=== PATIENT | female | born 1995 | race Caucasian/White ===

== ENCOUNTER 2017-04-18 21:42 | Outpatient (CLI) | payer BC ==
[~2017-04-18] VITALS: Ht 167.6 cm; Wt 69.0 kg
[~2017-04-18 21:42] MED LIST: METO5TAB57 PO; PROM12.553 RC
[2017-04-18 21:50] VITALS: BP 112/69
[2017-04-18 23:11] LABS: AMNISURE NEGATIVE (NEGATIVE)
== END 2017-04-18 23:58 | disposition home or self-care (01) ==
LOC: LDOP 21:42
PROVIDERS: ATTEND Obstetrics & Gynecology
DX: O42.913 Preterm premature rupture of membranes, unspecified as to length of time between rupture and onset of labor, third trimester (principal); O62.9 Abnormality of forces of labor, unspecified; O99.343 Other mental disorders complicating pregnancy, third trimester; O47.03 False labor before 37 completed weeks of gestation, third trimester; F32.9 Major depressive disorder, single episode, unspecified; Z3A.33 33 weeks gestation of pregnancy
CPT/HCPCS: 59025; 76815; 84112; 89060; 99211; G0463; Q0114

== ENCOUNTER 2017-05-29 03:53 | Inpatient (IN) | payer BC ==
[~2017-05-29] VITALS: Ht 165.1 cm; Wt 71.8 kg
[2017-05-29 05:16] LABS: AMNISURE POSITIVE (NEGATIVE)
[2017-05-29] MEDS ORDERED: NEWBORN KIT ONE (05:21)
[2017-05-29] MEDS ORDERED: CALCIUM CARBONATE 500 MG TAB.CHEW ONE ×2 (05:21→13:11)
[2017-05-29] MEDS ORDERED: OXYTOCIN 30U/ 0.9% NaCL 500ML 500 ML ONE (05:21)
[2017-05-29] MEDS ORDERED: D5%-LACTATED RINGERS 1,000 ML IV SCH (05:24)
[2017-05-29] MEDS ORDERED: OXYTOCIN 30U/ 0.9% NaCL 500ML 500 ML IV ONE (05:24)
[2017-05-29] MEDS ORDERED: OXYTOCIN 30U/ 0.9% NaCL 500ML 500 ML IV PRN (05:24)
[2017-05-29] MEDS ORDERED: FENTANYL PF 100 MCG/2ML IV PRN (05:30)
[2017-05-29] MEDS ORDERED: FENTANYL PF 100 MCG/2ML IVPush PRN (05:30)
[2017-05-29] MEDS ORDERED: ONDANSETRON 2MG/ML, 2ML IVPush PRN (05:30)
[2017-05-29] MEDS ORDERED: TERBUTALINE 1 MG/ML, 1ML IVPush PRN (05:30)
[2017-05-29] MEDS: CALCIUM CARBONATE 500 MG TAB.CHEW PO PRN ×2 (05:45→13:16)
[2017-05-29 05:47] LABS: BASOPHILS # (AUTO) 0.04 x10^3/uL (0-0.1); BASOPHILS % (AUTO) 0 % (0-1); EOSINOPHILS # (AUTO) 0.04 x10^3/uL (0-0.4); EOSINOPHILS % (AUTO) 0 % (1-7); LYMPHOCYTES # (AUTO) 2.66 x10^3/uL (1-3.4); LYMPHOCYTES % (AUTO) 21 % (22-44); MD NO; MEAN CORPUSCULAR HGB CONC 34.1 g/dL (32.4-35.8); MEAN CORPUSCULAR VOLUME 96.7 fL (80-100); MEAN PLATELET VOLUME 7.8 fL (7.4-10.4); MONOCYTES # (AUTO) 0.73 x10^3/uL (0.2-0.8); MONOCYTES % (AUTO) 6 % (2-9); NEUTROPHILS # (AUTO) 9.21 x10^3/uL (1.8-6.8); NEUTROPHILS % (AUTO) 73 % (42-75); PLATELET COUNT 251 x10^3/uL (130-400); RED CELL DISTRIBUTION WIDTH 12.8 % (9.6-15.2)
[2017-05-29] MEDS ORDERED: ACET650S21 PO (06:37)
[2017-05-29] MEDS ORDERED: CALC200T3 PO (06:38)
[2017-05-29] MEDS ORDERED: FLUO20CA19 PO (06:39)
[2017-05-29] MEDS ORDERED: LACTATED RINGERS 1,000 ML IV SCH (07:06)
[2017-05-29] MEDS ORDERED: FENTANYL/BUPIV./NS/PF 250 ML EPIDCONT SCH (07:06)
[2017-05-29 07:15] VITALS: BP 105/62
[2017-05-29] MEDS ORDERED: NALOXONE 0.4 MG/ML, 1ML IVPush PRN (07:30)
[2017-05-29] MEDS ORDERED: EPHEDRINE 50 MG/ML, 1ML IVPush PRN (07:30)
[2017-05-29] MEDS ORDERED: LACTATED RINGERS 1,000 ML IVBOLUS PRN (07:30)
[2017-05-29] MEDS ORDERED: BUPIVACAINE/PF 0.25% ONE (07:40)
[2017-05-29] MEDS ORDERED: FENTANYL/BUPIV./NS/PF 250 ML EPIDCONT ONE (07:40)
[2017-05-29] MEDS: LACTATED RINGERS 1,000 ML IV SCH ×2 (07:42→11:50)
[2017-05-29] MEDS ORDERED: LIDOCAINE 1%, 20ML ONE (10:32)
[2017-05-29] MEDS ORDERED: MISOPROSTOL 200 MCG TABLET ONE (10:32)
[2017-05-29] MEDS: OXYTOCIN 30U/ 0.9% NaCL 500ML 500 ML IV SCH (17:59)
[2017-05-29] MEDS ORDERED: MISOPROSTOL 200 MCG TABLET PR PRN (18:00)
[2017-05-29] MEDS ORDERED: OXYcodone/APAP 5/325MG TABLET PO PRN (18:00)
[2017-05-29] MEDS ORDERED: IBUPROFEN 600 MG TABLET ONE (19:25)
[2017-05-29] MEDS: IBUPROFEN 600 MG TABLET PO PRN (19:31)
[2017-05-29 20:40] VITALS: BP 99/63
[2017-05-29] MEDS: OXYcodone/APAP 5/325MG TABLET PO PRN (23:47)
[2017-05-30 00:01] VITALS: BP 93/59
[2017-05-30] MEDS: IBUPROFEN 600 MG TABLET PO PRN ×3 (01:43→16:12)
[2017-05-30 01:50] LABS: MEAN CORPUSCULAR HEMOGLOBIN 32.9 pg (27.0-34.8); MEAN CORPUSCULAR HGB CONC 33.8 g/dL (32.4-35.8); MEAN CORPUSCULAR VOLUME 97.4 fL (80-100); MEAN PLATELET VOLUME 7.6 fL (7.4-10.4); PLATELET COUNT 240 x10^3/uL (130-400); RED CELL DISTRIBUTION WIDTH 12.9 % (9.6-15.2)
[2017-05-30 02:05] LABS: BASOPHILS # (AUTO) 0.06 x10^3/uL (0-0.1); BASOPHILS % (AUTO) 0 % (0-1); EOSINOPHILS % (AUTO) 0 % (1-7); LYMPHOCYTES # (AUTO) 2.33 x10^3/uL (1-3.4); LYMPHOCYTES % (AUTO) 11 % (22-44); MD SCAN; MONOCYTES # (AUTO) 1.52 x10^3/uL (0.2-0.8); MONOCYTES % (AUTO) 7 % (2-9); NEUTROPHILS # (AUTO) 17.41 x10^3/uL (1.8-6.8); NEUTROPHILS % (AUTO) 82 % (42-75)
[2017-05-30] MEDS: OXYTOCIN 30U/ 0.9% NaCL 500ML 500 ML IV SCH ×2 (03:59→04:32)
[2017-05-30 04:15] VITALS: BP 92/60
[2017-05-30] MEDS: OXYcodone/APAP 5/325MG TABLET PO PRN ×3 (05:42→16:12)
[2017-05-30 08:05] VITALS: BP 98/57
[2017-05-30] MEDS ORDERED: PRENATAL VIT/IRON/FA 1 EACH TABLET PO SCH (09:00)
[2017-05-30] MEDS ORDERED: IBUP-1222 PO (11:20)
[2017-05-30] MEDS ORDERED: OXYC-302 PO (11:26)
[2017-05-30 12:15] VITALS: BP 85/46
[2017-05-30 16:00] VITALS: BP 92/52
== END 2017-05-30 18:58 | disposition home or self-care (01) | DRG 775 ==
LOC: LDOP 03:53 → LDIP 05:27 → 2NW 20:21
PROVIDERS: ADMIT Obstetrics & Gynecology; ATTEND Obstetrics & Gynecology
PROC: 10E0XZZ Delivery of Products of Conception, External Approach (ICD-10-PCS; principal; 2017-05-29)
PROC: 0KQM0ZZ Repair Perineum Muscle, Open Approach (ICD-10-PCS; 2017-05-29)
PROC: 3E0R3BZ Introduction of Anesthetic Agent into Spinal Canal, Percutaneous Approach (ICD-10-PCS; 2017-05-29)
PROC: 00HU33Z Insertion of Infusion Device into Spinal Canal, Percutaneous Approach (ICD-10-PCS; 2017-05-29)
DX: O42.92 Full-term premature rupture of membranes, unspecified as to length of time between rupture and onset of labor (principal); O99.354 Diseases of the nervous system complicating childbirth; F41.9 Anxiety disorder, unspecified; O99.344 Other mental disorders complicating childbirth; G43.909 Migraine, unspecified, not intractable, without status migrainosus; O70.1 Second degree perineal laceration during delivery; Z3A.38 38 weeks gestation of pregnancy; Z90.89 Acquired absence of other organs; Z37.0 Single live birth
CPT/HCPCS: 36415; 84112; 85025; 86850; 86900; 89060; J3490; J2590; J3010; J7120; J7121; Q0114

== ENCOUNTER 2017-06-14 14:16 | Inpatient (IN) | payer BC, MEDICAID ==
[~2017-06-14] VITALS: Ht 165.1 cm; Wt 69.9 kg
[~2017-06-14 14:16] MED LIST changes: +ACET650S21 PO; +CALC200T3 PO; +FLUO20CA19 PO; +IBUP-1222 PO; +OXYC-302 PO
[2017-06-14] MEDS ORDERED: ONDANSETRON 2MG/ML, 2ML ONE (15:23)
[2017-06-14] MEDS ORDERED: MORPHINE SULFATE 4 MG/ML, 1ML ONE ×2 (15:23→16:38)
[2017-06-14] MEDS: MORPHINE SULFATE 4 MG/ML, 1ML IVPush PRN ×2 (15:24→16:40)
[2017-06-14] MEDS ORDERED: SODIUM CHLORIDE 0.9% 1,000ML IVBOLUS ONE (15:30)
[2017-06-14] MEDS ORDERED: SODIUM CHLORIDE FLUSH 10ML SYR IVF ONE (15:30)
[2017-06-14] MEDS ORDERED: ONDANSETRON 2MG/ML, 2ML IVPush ONE (15:30)
[2017-06-14 15:37] LABS: BASOPHILS # (AUTO) 0.16 x10^3/uL (0-0.1); BASOPHILS % (AUTO) 1 % (0-1); EOSINOPHILS # (AUTO) 0.16 x10^3/uL (0-0.4); EOSINOPHILS % (AUTO) 1 % (1-7); LYMPHOCYTES # (AUTO) 1.93 x10^3/uL (1-3.4); LYMPHOCYTES % (AUTO) 11 % (22-44); MD NO; MEAN CORPUSCULAR HGB CONC 33.1 g/dL (32.4-35.8); MEAN CORPUSCULAR VOLUME 93.8 fL (80-100); MEAN PLATELET VOLUME 7.9 fL (7.4-10.4); MONOCYTES # (AUTO) 0.51 x10^3/uL (0.2-0.8); MONOCYTES % (AUTO) 3 % (2-9); NEUTROPHILS # (AUTO) 14.67 x10^3/uL (1.8-6.8); NEUTROPHILS % (AUTO) 84 % (42-75); PLATELET COUNT 410 x10^3/uL (130-400); RED BLOOD COUNT 3.96 x10^6/uL (3.82-5.3); RED CELL DISTRIBUTION WIDTH 12.6 % (9.6-15.2)
[2017-06-14 15:57] LABS: ALANINE AMINOTRANSFERASE 25 U/L (12-78); ALBUMIN 3.3 g/dL (3.4-5.0); ANION GAP 9 mmol/L (5-15); CALCIUM 9.4 mg/dL (8.5-10.1); CHLORIDE 109 mmol/L (98-107); CREATININE 0.67 mg/dL (0.55-1.02)
[2017-06-14 15:59] LABS: ALKALINE PHOSPHATASE 134 U/L (45-117); BILIRUBIN,TOTAL 0.4 mg/dL (0.2-1.0); TOTAL PROTEIN 7.9 g/dL (6.4-8.2)
[2017-06-14] MEDS ORDERED: MECLIZINE CHEWABLE 25 MG TAB ONE (16:23)
[2017-06-14] MEDS ORDERED: NITROGLYCERIN SINGLE TAB 0.4 MG SL ONE (16:24)
[2017-06-14] MEDS ORDERED: ASPIRIN 81 MG TABLET CHEW ONE (16:24)
[2017-06-14 16:40] LABS: CULTURE INDICATED? YES; MICROSCOPIC INDICATED
[2017-06-14 17:10] LABS: CLUE CELLS NONE SEEN (NONE SEEN); WET PREP WBCS FEW (FEW)
[2017-06-14] MEDS ORDERED: SODIUM CHLORIDE 0.9% 1,000 ML IV ONE (17:14)
[2017-06-14] MEDS ORDERED: GENTAMICIN PER PHARMACY MC PRN ×2 (17:30→21:00)
[2017-06-14] MEDS ORDERED: SODIUM CHLORIDE FLUSH 10ML SYR IVF PRN (17:30)
[2017-06-14] MEDS ORDERED: ONDANSETRON 2MG/ML, 2ML IVPush PRN (17:30)
[2017-06-14] MEDS ORDERED: CLINDAMYCIN PMX 600MG/50ML 50 ML IV ONE (17:30)
[2017-06-14] MEDS ORDERED: MORPHINE SULFATE 4 MG/ML, 1ML IVPush PRN (17:30)
[2017-06-14] MEDS ORDERED: GENTAMICIN 300 MG in SODIUM CHLORIDE 0.9% 100 ML IV ONE (18:00)
[2017-06-14 19:30] VITALS: BP 98/61
[2017-06-14] MEDS ORDERED: OXYcodone/APAP 5/325MG TABLET ONE (20:52)
[2017-06-14] MEDS: OXYcodone/APAP 5/325MG TABLET PO PRN (20:54)
[2017-06-14] MEDS ORDERED: PHARMACOKINETIC CONSULTATION MC ONE (21:00)
[2017-06-14] MEDS ORDERED: PHARMACOKINETIC MONITORING MC PRN (21:00)
[2017-06-14 21:40] LABS: MEAN CORPUSCULAR HEMOGLOBIN 31.5 pg (27.0-34.8); MEAN CORPUSCULAR HGB CONC 33.5 g/dL (32.4-35.8); MEAN CORPUSCULAR VOLUME 93.9 fL (80-100); MEAN PLATELET VOLUME 7.6 fL (7.4-10.4); PLATELET COUNT 352 x10^3/uL (130-400); RED BLOOD COUNT 3.27 x10^6/uL (3.82-5.3); RED CELL DISTRIBUTION WIDTH 12.5 % (9.6-15.2)
[2017-06-14] MEDS: AMPICILLIN 2 GM in SODIUM CHLORIDE 0.9% 100 ML IV SCH (22:06)
[2017-06-14 22:35] LABS: BASOPHILS # (AUTO) 0.05 x10^3/uL (0-0.1); BASOPHILS % (AUTO) 0 % (0-1); EOSINOPHILS # (AUTO) 0.12 x10^3/uL (0-0.4); EOSINOPHILS % (AUTO) 1 % (1-7); LYMPHOCYTES % (AUTO) 14 % (22-44); MD SCAN; MONOCYTES # (AUTO) 0.54 x10^3/uL (0.2-0.8); MONOCYTES % (AUTO) 3 % (2-9); NEUTROPHILS % (AUTO) 83 % (42-75)
[2017-06-14] MEDS: ONDANSETRON 2MG/ML, 2ML IVPush PRN (23:35)
[2017-06-14] MEDS: CLINDAMYCIN PMX 600MG/50ML 50 ML IV SCH (23:35)
[2017-06-15] VITALS: BP 94/57
[2017-06-15] MEDS: OXYcodone/APAP 5/325MG TABLET PO PRN ×5 (03:33→21:42)
[2017-06-15] MEDS: AMPICILLIN 2 GM in SODIUM CHLORIDE 0.9% 100 ML IV SCH ×4 (04:39→21:42)
[2017-06-15 05:42] LABS: CREATININE 0.68 mg/dL (0.55-1.02)
[2017-06-15] MEDS: CLINDAMYCIN PMX 600MG/50ML 50 ML IV SCH ×2 (08:00→16:39)
[2017-06-15] MEDS: IBUPROFEN 200 MG TABLET PO PRN ×2 (08:00→15:53)
[2017-06-15] MEDS: ONDANSETRON 2MG/ML, 2ML IVPush PRN ×3 (08:03→21:42)
[2017-06-15 08:11] VITALS: BP 99/66
[2017-06-15 13:33] VITALS: BP 103/57
[2017-06-15 20:01] VITALS: BP 98/60
[2017-06-15] MEDS: GENTAMICIN 300 MG in SODIUM CHLORIDE 0.9% 100 ML IV SCH (20:16)
[2017-06-16] MEDS: CLINDAMYCIN PMX 600MG/50ML 50 ML IV SCH ×3 (01:18→17:13)
[2017-06-16] MEDS: AMPICILLIN 2 GM in SODIUM CHLORIDE 0.9% 100 ML IV SCH ×5 (03:45→22:36)
[2017-06-16] MEDS: OXYcodone/APAP 5/325MG TABLET PO PRN ×5 (03:51→21:53)
[2017-06-16 03:52] VITALS: BP 106/70
[2017-06-16] MEDS: IBUPROFEN 200 MG TABLET PO PRN ×3 (06:27→21:53)
[2017-06-16 07:04] VITALS: BP 95/62
[2017-06-16] MEDS: ONDANSETRON 2MG/ML, 2ML IVPush PRN ×3 (08:32→21:53)
[2017-06-16 13:28] VITALS: BP 101/66
[2017-06-16] MEDS ORDERED: BISACODYL 10 MG SUPP PR PRN (16:00)
[2017-06-16] MEDS: DOCUSATE 100 MG CAPSULE PO PRN (16:03)
[2017-06-16 19:34] VITALS: BP 99/65
[2017-06-16] MEDS: GENTAMICIN 300 MG in SODIUM CHLORIDE 0.9% 100 ML IV SCH (20:54)
[2017-06-17] MEDS: CLINDAMYCIN PMX 600MG/50ML 50 ML IV SCH ×2 (01:09→12:58)
[2017-06-17 01:18] VITALS: BP 95/60
[2017-06-17] MEDS: AMPICILLIN 2 GM in SODIUM CHLORIDE 0.9% 100 ML IV SCH ×2 (04:18→10:59)
[2017-06-17 07:14] VITALS: BP 101/65
[2017-06-17] MEDS: OXYcodone/APAP 5/325MG TABLET PO PRN ×2 (07:57→13:44)
[2017-06-17] MEDS: IBUPROFEN 200 MG TABLET PO PRN ×2 (07:57→13:44)
[2017-06-17] MEDS: ONDANSETRON 2MG/ML, 2ML IVPush PRN (07:57)
[2017-06-17] MEDS: DOCUSATE 100 MG CAPSULE PO PRN (08:13)
[2017-06-17 12:16] LABS: MEAN CORPUSCULAR HEMOGLOBIN 31.7 pg (27.0-34.8); MEAN CORPUSCULAR HGB CONC 33.7 g/dL (32.4-35.8); MEAN PLATELET VOLUME 7.6 fL (7.4-10.4); PLATELET COUNT 415 x10^3/uL (130-400); RED CELL DISTRIBUTION WIDTH 12.7 % (9.6-15.2)
[2017-06-17 12:42] LABS: BASOPHILS # (AUTO) 0.05 x10^3/uL (0-0.1); BASOPHILS % (AUTO) 1 % (0-1); EOSINOPHILS # (AUTO) 0.23 x10^3/uL (0-0.4); EOSINOPHILS % (AUTO) 4 % (1-7); LYMPHOCYTES # (AUTO) 2.49 x10^3/uL (1-3.4); LYMPHOCYTES % (AUTO) 40 % (22-44); MD SCAN; MONOCYTES # (AUTO) 0.44 x10^3/uL (0.2-0.8); MONOCYTES % (AUTO) 7 % (2-9); NEUTROPHILS # (AUTO) 2.99 x10^3/uL (1.8-6.8); NEUTROPHILS % (AUTO) 48 % (42-75)
[2017-06-17 12:55] VITALS: BP 106/71
[2017-06-17] MEDS ORDERED: AMOX1TAB64 PO (16:23)
[2017-06-17] MEDS ORDERED: OXYC-302 PO (16:24)
[2017-06-17 16:52] VITALS: BP 97/68
== END 2017-06-17 17:10 | disposition home or self-care (01) | DRG 776 ==
LOC: ED 17:20 → EDIP 18:15 → 4NOR 18:39
PROVIDERS: ADMIT Obstetrics & Gynecology; ATTEND Obstetrics & Gynecology
DX: O85 Puerperal sepsis (principal); O86.12 Endometritis following delivery; N71.9 Inflammatory disease of uterus, unspecified; O91.22 Nonpurulent mastitis associated with the puerperium
CPT/HCPCS: 36415; 76642; 76830; 80053; 80170; 81001; 82565; 83605; 84520; 85025; 87040; 87070; 87086; 87205; 87210; 87491; 87591; 87808; 96361; 96374; 96375; 96376; J0290; J2405; J1580; J7030

== ENCOUNTER 2017-06-27 17:35 | Emergency (ER) | payer BC, MEDICAID ==
[~2017-06-27] VITALS: Ht 165.1 cm; Wt 62.6 kg
[~2017-06-27 17:35] MED LIST changes: +AMOX1TAB64 PO
[2017-06-27] MEDS ORDERED: SODIUM CHLORIDE 0.9% 1,000ML IVBOLUS ONE (18:00)
[2017-06-27 18:10] LABS: BASOPHILS # (AUTO) 0.04 x10^3/uL (0-0.1); BASOPHILS % (AUTO) 0 % (0-1); EOSINOPHILS # (AUTO) 0.13 x10^3/uL (0-0.4); EOSINOPHILS % (AUTO) 1 % (1-7); LYMPHOCYTES # (AUTO) 2.53 x10^3/uL (1-3.4); LYMPHOCYTES % (AUTO) 25 % (22-44); MD NO; MEAN CORPUSCULAR HEMOGLOBIN 30.8 pg (27.0-34.8); MEAN CORPUSCULAR HGB CONC 33.1 g/dL (32.4-35.8); MEAN CORPUSCULAR VOLUME 93.1 fL (80-100); MEAN PLATELET VOLUME 8.2 fL (7.4-10.4); MONOCYTES # (AUTO) 0.61 x10^3/uL (0.2-0.8); MONOCYTES % (AUTO) 6 % (2-9); NEUTROPHILS % (AUTO) 68 % (42-75); PLATELET COUNT 314 x10^3/uL (130-400); RED BLOOD COUNT 4.17 x10^6/uL (3.82-5.3); RED CELL DISTRIBUTION WIDTH 12.4 % (9.6-15.2)
[2017-06-27 18:23] LABS: ALANINE AMINOTRANSFERASE 20 U/L (12-78); ALBUMIN 3.5 g/dL (3.4-5.0); ANION GAP 7 mmol/L (5-15); CALCIUM 8.7 mg/dL (8.5-10.1); CHLORIDE 110 mmol/L (98-107); CREATININE 0.88 mg/dL (0.55-1.02)
[2017-06-27 18:25] LABS: ALKALINE PHOSPHATASE 109 U/L (45-117); BILIRUBIN,TOTAL 0.2 mg/dL (0.2-1.0); TOTAL PROTEIN 7.6 g/dL (6.4-8.2)
[2017-06-27 19:29] LABS: MICROSCOPIC AUTO
[2017-06-27 19:30] LABS: CULTURE INDICATED? YES
[2017-06-27 20:21] VITALS: BP 104/66
== END 2017-06-27 20:29 | disposition home or self-care (01) ==
LOC: ED 20:05
DX: O26.891 Other specified pregnancy related conditions, first trimester (principal); R10.2 Pelvic and perineal pain; Z3A.01 Less than 8 weeks gestation of pregnancy
CPT/HCPCS: 36415; 74021; 76830; 80053; 81001; 83605; 85025; 87086; 96360; 99285; J7030

== ENCOUNTER 2019-10-04 04:54 | Emergency (ER) | payer BC, MEDICAID ==
[~2019-10-04] VITALS: Ht 162.6 cm; Wt 69.4 kg
--- NOTE | 2019-10-04 05:00 | NUR ---
C/O VAGINAL BLEEDING X 2 WEEKS AFTER HAVING A POSITIVE TEST, SHE WAS SEEN AND TOLD SHE HAD A MISCARRIAGE. C/O SEVERE CRAMPING.
[2019-10-04] MEDS ORDERED: HYDROcodone/APAP 5/325 TABLET ONE (05:28)
[2019-10-04] MEDS ORDERED: HYDROcodone/APAP 5/325 TABLET PO STA (05:28)
[2019-10-04 05:43] LABS: MICROSCOPIC INDICATED
[2019-10-04] MEDS ORDERED: OXYcodone/APAP 5/325MG TABLET ONE (05:45)
[2019-10-04] MEDS ORDERED: IBUPROFEN 600 MG TABLET ONE (05:45)
--- NOTE | 2019-10-04 05:54 | NUR ---
PT MEDICATED FOR PAIN PER EMAR AND MARK ENCINAS IN TO DO PELVIC EXAM
[2019-10-04] MEDS ORDERED: OXYcodone/APAP 5/325MG TABLET PO ONE (06:00)
[2019-10-04] MEDS ORDERED: IBUPROFEN 600 MG TABLET PO ONE (06:00)
[2019-10-04 06:09] LABS: CLUE CELLS NONE SEEN (NONE SEEN); WET PREP WBCS MANY (FEW)
[2019-10-04 06:19] LABS: BASOPHILS # (AUTO) 0.05 x10^3/uL (0-0.1); BASOPHILS % (AUTO) 1 % (0-1); EOSINOPHILS # (AUTO) 0.08 x10^3/uL (0-0.4); EOSINOPHILS % (AUTO) 1 % (1-7); LYMPHOCYTES # (AUTO) 3.18 x10^3/uL (1-3.4); LYMPHOCYTES % (AUTO) 34 % (22-44); MD NO; MEAN CORPUSCULAR HEMOGLOBIN 30.2 pg (27.0-34.8); MEAN CORPUSCULAR HGB CONC 33.3 g/dL (32.4-35.8); MEAN PLATELET VOLUME 8.9 fL (7.4-10.4); MONOCYTES # (AUTO) 0.77 x10^3/uL (0.2-0.8); MONOCYTES % (AUTO) 8 % (2-9); NEUTROPHILS # (AUTO) 5.28 x10^3/uL (1.8-6.8); NEUTROPHILS % (AUTO) 56 % (42-75); PLATELET COUNT 258 x10^3/uL (130-400); RED BLOOD COUNT 4.02 x10^6/uL (3.82-5.3); RED CELL DISTRIBUTION WIDTH 12.6 % (9.6-15.2)
[2019-10-04 06:30] LABS: ALBUMIN 3.5 g/dL (3.4-5.0); ANION GAP 6 mmol/L (5-15); CALCIUM 8.9 mg/dL (8.5-10.1); CHLORIDE 109 mmol/L (98-107); CREATININE 0.74 mg/dL (0.55-1.02)
--- NOTE | 2019-10-04 06:59 | NUR ---
REPORT RECEIVED FROM DIDI MIJARES.
--- NOTE | 2019-10-04 07:00 | NUR ---
PT BACK TO ROOM FROM US AT THIS TIME.
[2019-10-04 07:57] VITALS: BP 90/54
--- NOTE | 2019-10-04 07:57 | NUR ---
edmd and pa at bedside to explain all results at this time. pt verbaly understanding.
[2019-10-04] MEDS ORDERED: LEVOFLOXACIN 750 MG TABLET PO ONE (08:00)
[2019-10-04] MEDS ORDERED: AZITHROMYCIN 500 MG TABLET PO ONE (08:00)
[2019-10-04] MEDS ORDERED: AZITHROMYCIN 250 MG TABLET ONE (08:01)
[2019-10-04] MEDS ORDERED: LEVOFLOXACIN 750 MG TABLET ONE (08:01)
--- NOTE | 2019-10-04 08:06 | NUR ---
PT MEDICATED PER EMAR. PT TOLERATED WELL.
--- NOTE | 2019-10-04 08:11 | NUR ---
Patient given discharge instructions and they have confirmed that they understand the instructions. Patient ambulatory with steady gait.
== END 2019-10-04 08:12 | disposition home or self-care (01) ==
LOC: ED 05:33
DX: O03.9 Complete or unspecified spontaneous abortion without complication (principal); N83.291 Other ovarian cyst, right side
CPT/HCPCS: 36415; 76830; 80048; 81001; 82040; 84703; 85025; 87210; 87491; 87591; 87808; 99284

== ENCOUNTER 2019-10-24 12:40 | Emergency (ER) | payer MEDICAID ==
[~2019-10-24] VITALS: Ht 160 cm; Wt 69.5 kg
--- NOTE | 2019-10-24 13:40 | NUR ---
RADIOLOGY RECEPTIONIST: PT TO ROOM FROM LOBBY VIA W/C
[2019-10-24] MEDS ORDERED: ONDANSETRON 2MG/ML, 2ML ONE (14:10)
[2019-10-24] MEDS ORDERED: MORPHINE SULFATE 4 MG/ML, 1ML ONE ×2 (14:10→15:20)
[2019-10-24] MEDS ORDERED: FAMOTIDINE 20 MG/2 ML ONE (14:11)
[2019-10-24 14:28] LABS: BASOPHILS # (AUTO) 0.04 x10^3/uL (0-0.1); BASOPHILS % (AUTO) 0 % (0-1); EOSINOPHILS # (AUTO) 0.05 x10^3/uL (0-0.4); EOSINOPHILS % (AUTO) 0 % (1-7); LYMPHOCYTES # (AUTO) 1.59 x10^3/uL (1-3.4); LYMPHOCYTES % (AUTO) 10 % (22-44); MD NO; MEAN CORPUSCULAR HEMOGLOBIN 30.3 pg (27.0-34.8); MEAN CORPUSCULAR HGB CONC 33.2 g/dL (32.4-35.8); MEAN PLATELET VOLUME 8.6 fL (7.4-10.4); MONOCYTES # (AUTO) 0.64 x10^3/uL (0.2-0.8); MONOCYTES % (AUTO) 4 % (2-9); NEUTROPHILS # (AUTO) 13.24 x10^3/uL (1.8-6.8); NEUTROPHILS % (AUTO) 85 % (42-75); PLATELET COUNT 294 x10^3/uL (130-400); RED BLOOD COUNT 5.26 x10^6/uL (3.82-5.3); RED CELL DISTRIBUTION WIDTH 12.7 % (9.6-15.2)
[2019-10-24] MEDS ORDERED: ONDANSETRON 2MG/ML, 2ML IVPush ONE (14:30)
[2019-10-24] MEDS ORDERED: FAMOTIDINE 20 MG/2 ML IV ONE (14:30)
[2019-10-24] MEDS ORDERED: SODIUM CHLORIDE 0.9% 1,000ML IVBOLUS ONE (14:30)
[2019-10-24] MEDS: MORPHINE SULFATE 4 MG/ML, 1ML IVPush PRN ×2 (14:32→16:00)
[2019-10-24 14:39] LABS: ALANINE AMINOTRANSFERASE 24 U/L (12-78); ALBUMIN 4.4 g/dL (3.4-5.0); ANION GAP 5 mmol/L (5-15); CALCIUM 9.2 mg/dL (8.5-10.1); CHLORIDE 106 mmol/L (98-107); CREATININE 0.92 mg/dL (0.55-1.02); MICROSCOPIC NOT IND
[2019-10-24 14:44] LABS: ALKALINE PHOSPHATASE 92 U/L (45-117); BILIRUBIN,TOTAL 0.5 mg/dL (0.2-1.0); TOTAL PROTEIN 8.6 g/dL (6.4-8.2)
[2019-10-24 16:51] LABS: WET PREP WBCS FEW (FEW)
[2019-10-24] MEDS ORDERED: OMNIPAQUE 350 MG/ML, 100ML BOTTLE ONE (17:00)
[2019-10-24 17:04] LABS: CLUE CELLS PRESENT (NONE SEEN)
[2019-10-24 17:29] VITALS: BP 111/63
== END 2019-10-24 18:43 | disposition home or self-care (01) ==
LOC: ED 14:01
DX: N76.0 Acute vaginitis (principal); R10.32 Left lower quadrant pain; R10.31 Right lower quadrant pain; R11.2 Nausea with vomiting, unspecified; B96.89 Other specified bacterial agents as the cause of diseases classified elsewhere
CPT/HCPCS: 36415; 74177; 76830; 80053; 81003; 83690; 84702; 85025; 87210; 87491; 87591; 87808; 96361; 96374; 96375; 96376; 99285; J2270; J2405; J3490; J7030; Q9967